=== PATIENT | male | born 1945 | race Caucasian/White ===

== ENCOUNTER 2018-03-22 04:04 | Emergency (ER) | payer MEDICARE, BC ==
[~2018-03-22] VITALS: Ht 162.6 cm; Wt 65.8 kg
[~2018-03-22 04:04] MED LIST: PRAV20TA PO
--- NOTE | 2018-03-22 04:37 | NUR ---
Dr. Hawkins at bedside for MSE.
[2018-03-22] MEDS ORDERED: IV NORMAL SALINE 1000 ML BAG IV ONE (04:45)
[2018-03-22] MEDS ORDERED: ONDANSETRON 4 MG/2 ML VIAL IV ONE (04:45)
[2018-03-22] MEDS ORDERED: HYDROMORPHONE 1 MG/1 ML DISP.SYRIN IV ONE (04:45)
[2018-03-22] MEDS ORDERED: ONDANSETRON 4 MG/2 ML VIAL ONE (04:51)
[2018-03-22] MEDS ORDERED: HYDROMORPHONE 2 MG/1 ML DISP.SYRIN ONE (04:53)
[2018-03-22 05:19] LABS: BASOPHILS # (AUTO) 0.1 K/uL (0.0-8.0); EOSINOPHILS # (AUTO) 0.2 K/uL (0.0-0.7); EOSINOPHILS % (AUTO) 2.6 % (0.0-7.0); HEMATOCRIT 42.6 % (36.7-47.1); HEMOGLOBIN 14.2 g/dL (12.5-16.3); LYMPHOCYTES # (AUTO) 1.5 K/uL (20.0-40.0); LYMPHOCYTES % (AUTO) 20.3 % (20.5-51.5); MEAN CORPUSCULAR HEMOGLOBIN 29.4 uug (23.8-33.4); MEAN CORPUSCULAR HGB CONC 33 g/dL (32.5-36.3); MEAN CORPUSCULAR VOLUME 87.9 fL (73.0-96.2); MONOCYTES # (AUTO) 0.5 K/uL (2.0-10.0); MONOCYTES % (AUTO) 6.8 % (0.0-11.0); NEUTROPHILS # (AUTO) 5.3 K/uL (1.8-8.9); NEUTROPHILS % (AUTO) 69.3 % (38.5-71.5); PLATELET COUNT (AUTO) 199 K/uL (152-348); RED BLOOD CELL COUNT(AUTO) 4.85 MIL/uL (4.06-5.63); WHITE BLOOD COUNT (AUTO) 7.6 K/uL (3.6-10.2)
--- NOTE | 2018-03-22 05:26 | NUR ---
Pt out of ER for CT.
[2018-03-22 05:33] LABS: BILIRUBIN,DIRECT 0.2 mg/dL (0.0-0.2); BILIRUBIN,TOTAL 0.6 mg/dL (0.2-1.0); CREATININE 1.5 mg/dL (0.6-1.3); POTASSIUM 3.6 mmol/L (3.5-5.1); TOTAL PROTEIN, SERUM 7.1 g/dL (6.4-8.2)
--- NOTE | 2018-03-22 05:40 | NUR ---
Pt back to ER from CT.
--- NOTE | 2018-03-22 05:50 | NUR ---
Pt provided urine sample, sent to lab.
[2018-03-22] MEDS ORDERED: FLEET ENEMA 133 ML BOTTLE RC ONE ×2 (06:15→06:26)
[2018-03-22] MEDS ORDERED: BISACODYL 5 MG TABLET.DR PO ONE ×2 (06:15→06:25)
--- NOTE | 2018-03-22 06:49 | NUR ---
Pt given fleets enema, had a bowel movement after 3 min.
--- NOTE | 2018-03-22 07:06 | NUR ---
[facility] report given to Louise SALEH.
--- NOTE | 2018-03-22 08:47 | NUR ---
Patient discharged to home in stable conditon. Written and verbal after care instructions given. Patient verbalizes understanding of instructions.pt aware of the fact that that the pt has to follow up with own pmd regarding ct results kristofer. 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 pt says feels better, deneisa ny pain or nausea or dizziness at this time.
[2018-03-22 08:49] VITALS: BP 141/81
== END 2018-03-22 09:00 | disposition home or self-care (01) ==
LOC: ER 04:08
DX: R10.30 Lower abdominal pain, unspecified (principal); E78.00 Pure hypercholesterolemia, unspecified; E78.5 Hyperlipidemia, unspecified
CPT/HCPCS: 36415; 74176; 80048; 80076; 83690; 84484; 85025; 85730; 93005; 96374; 96375; 99285; A4663; J1170; J2405; J7030; 70030-TC